=== PATIENT | male | born 1950 | race Caucasian/White ===

== ENCOUNTER 2018-01-30 17:09 | Emergency (ER) | payer MEDICARE, OTHER ==
[~2018-01-30] VITALS: Ht 177.8 cm; Wt 147.4 kg
[~2018-01-30 17:09] MED LIST: HUMALOG SQ; LANTUS SQ; SERT100T
[2018-01-30] MEDS ORDERED: DULOXETINE HCL 30 MG (17:23)
[2018-01-30] MEDS ORDERED: APAP (17:23)
[2018-01-30] MEDS ORDERED: ZOLPIDEM TARTRATE 5 MG (17:23)
[2018-01-30] MEDS ORDERED: PROMETHAZINE HCL (17:23)
[2018-01-30] MEDS ORDERED: VESICARE 10 MG (17:23)
[2018-01-30] MEDS ORDERED: SERTRALINE HCL 100 MG (17:23)
[2018-01-30] MEDS ORDERED: AMLODIPINE BESYLATE 5 MG TABS (17:23)
[2018-01-30] MEDS ORDERED: LISINOPRIL 10 MG TABS (17:23)
[2018-01-30] MEDS ORDERED: HYDROCO (17:23)
[2018-01-30] MEDS ORDERED: FUROSEMIDE 20 MG (17:23)
[2018-01-30] MEDS ORDERED: CICLOPIROX 8% (17:23)
[2018-01-30] MEDS ORDERED: IV NORMAL SALINE 1000 ML BAG IV ONE (17:30)
[2018-01-30 17:58] LABS: BASOPHILS # (AUTO) 0.1 K/uL (0.0-8.0); EOSINOPHILS # (AUTO) 0.2 K/uL (0.0-0.7); EOSINOPHILS % (AUTO) 1.5 % (0.0-7.0); HEMATOCRIT 36.8 % (36.7-47.1); HEMOGLOBIN 12.1 g/dL (12.5-16.3); LYMPHOCYTES % (AUTO) 43.9 % (20.5-51.5); MEAN CORPUSCULAR HEMOGLOBIN 30.7 uug (23.8-33.4); MEAN CORPUSCULAR HGB CONC 33 g/dL (32.5-36.3); MEAN CORPUSCULAR VOLUME 92.9 fL (73.0-96.2); MONOCYTES # (AUTO) 0.9 K/uL (2.0-10.0); MONOCYTES % (AUTO) 6.4 % (0.0-11.0); NEUTROPHILS # (AUTO) 6.5 K/uL (1.8-8.9); NEUTROPHILS % (AUTO) 47.2 % (38.5-71.5); PLATELET COUNT (AUTO) 265 K/uL (152-348); RED BLOOD CELL COUNT(AUTO) 3.96 MIL/uL (4.06-5.63); WHITE BLOOD COUNT (AUTO) 13.8 K/uL (3.6-10.2)
[2018-01-30 18:03] LABS: CREATININE 2.5 mg/dL (0.6-1.3); POTASSIUM 4.8 mmol/L (3.5-5.1)
[2018-01-30 18:09] LABS: BILIRUBIN,DIRECT 0.1 mg/dL (0.0-0.2); BILIRUBIN,TOTAL 0.5 mg/dL (0.2-1.0); TOTAL PROTEIN, SERUM 7.3 g/dL (6.4-8.2)
--- NOTE | 2018-01-30 18:48 | NUR ---
IV removed. Catheter intact and site benign. Pressure and 4x4 gauze applied to site. No bleeding noted.
[2018-01-30 18:55] VITALS: BP 111/57
--- NOTE | 2018-01-30 18:57 | NUR ---
Patient discharged to home in stable conditon. Written and verbal after care instructions given. Patient verbalizes understanding of instructions.
== END 2018-01-30 18:58 | disposition home or self-care (01) ==
LOC: ER 17:10
DX: I95.9 Hypotension, unspecified (principal); I10 Essential (primary) hypertension; J45.909 Unspecified asthma, uncomplicated; E11.9 Type 2 diabetes mellitus without complications
CPT/HCPCS: 36415; 70030-TC; 71045; 85025; 85730; 86850; 86900; 86901; 93005; A4663; J7030

== ENCOUNTER 2018-09-29 18:21 | Inpatient (IN) | payer MEDICARE, OTHER ==
[~2018-09-29] VITALS: Ht 180.3 cm; Wt 117.9 kg
[~2018-09-29 18:21] MED LIST changes: +AMLODIPINE BESYLATE 5 MG TABS; +APAP; +CICLOPIROX 8%; +DULOXETINE HCL 30 MG; +FUROSEMIDE 20 MG; +HYDROCO; +LISINOPRIL 10 MG TABS; +PROMETHAZINE HCL; +SERTRALINE HCL 100 MG; +VESICARE 10 MG; +ZOLPIDEM TARTRATE 5 MG
[2018-09-29] MEDS ORDERED: IV NORMAL SALINE 1000 ML BAG IV ONE (19:00)
[2018-09-29 19:30] LABS: BASOPHILS # (AUTO) 0.1 K/uL (0.0-8.0); BASOPHILS % (AUTO) 1.1 % (0.0-2.0); EOSINOPHILS # (AUTO) 0.1 K/uL (0.0-0.7); EOSINOPHILS % (AUTO) 1.3 % (0.0-7.0); HEMATOCRIT 36.2 % (36.7-47.1); HEMOGLOBIN 12.3 g/dL (12.5-16.3); LYMPHOCYTES # (AUTO) 4.7 K/uL (20.0-40.0); LYMPHOCYTES % (AUTO) 49.9 % (20.5-51.5); MEAN CORPUSCULAR HEMOGLOBIN 31.2 uug (23.8-33.4); MEAN CORPUSCULAR HGB CONC 34 g/dL (32.5-36.3); MEAN CORPUSCULAR VOLUME 92.2 fL (73.0-96.2); MONOCYTES # (AUTO) 0.6 K/uL (2.0-10.0); MONOCYTES % (AUTO) 6.1 % (0.0-11.0); NEUTROPHILS # (AUTO) 3.9 K/uL (1.8-8.9); NEUTROPHILS % (AUTO) 41.6 % (38.5-71.5); PLATELET COUNT (AUTO) 176 K/uL (152-348); RED BLOOD CELL COUNT(AUTO) 3.93 MIL/uL (4.06-5.63); WHITE BLOOD COUNT (AUTO) 9.4 K/uL (3.6-10.2)
[2018-09-29 19:45] LABS: BILIRUBIN,DIRECT 0.2 mg/dL (0.0-0.2); BILIRUBIN,TOTAL 0.4 mg/dL (0.2-1.0); CREATININE 1.7 mg/dL (0.6-1.3); POTASSIUM 4.8 mmol/L (3.5-5.1); TOTAL PROTEIN, SERUM 6.9 g/dL (6.4-8.2)
[2018-09-29 20:14] LABS: *BILIRUBIN,URIN NEGATIVE (NEGATIVE); *BLOOD, URINE NEGATIVE (NEGATIVE); *CLARITY,URINE CLEAR (CLEAR); *COLOR,URINE DARK YELLOW (YELLOW); *KETONES,URINE NEGATIVE (NEGATIVE); LEUKOCYTE ESTERASE ,URINE 1+ (NEGATIVE); NITRITE, URINE NEGATIVE (NEGATIVE); PH,URINE 5.5 (5.0-8.0); UGLUCOSE NEGATIVE (NEGATIVE)
[2018-09-29 20:28] LABS: RBC,URINE 0-3 /HPF (0-3)
[2018-09-29 20:29] LABS: BACTERIA,URINE FEW /HPF (NONE SEEN); SQUAMOUS EPITHELIAL CELL,UR NONE SEEN /HPF (NONE SEEN)
[2018-09-29] MEDS ORDERED: SOLI10TA2 PO (20:47)
[2018-09-29] MEDS ORDERED: TRAM50TA2 PO (20:47)
[2018-09-29] MEDS ORDERED: DULO30CA2 PO (20:47)
[2018-09-29] MEDS ORDERED: MIDO10TA PO (20:47)
[2018-09-29] MEDS ORDERED: SERT50TA PO (20:47)
[2018-09-29] MEDS ORDERED: FLUD0.1T PO (20:47)
[2018-09-29] MEDS ORDERED: ASPI81TA44 PO (20:47)
[2018-09-29] MEDS ORDERED: LISI30TA4 PO (20:47)
[2018-09-29] MEDS ORDERED: PRAV40TA3 PO (20:47)
[2018-09-29] MEDS ORDERED: CHOL100062 PO (20:47)
[2018-09-29] MEDS ORDERED: RANO10003 PO (20:47)
[2018-09-29] MEDS ORDERED: INSU100V7 SQ (20:47)
[2018-09-29] MEDS ORDERED: BLOO-360 IN (20:47)
[2018-09-29 21:49] VITALS: BP 144/58
[2018-09-29] MEDS ORDERED: DEXTROSE 50% 50 ML DISP.SYRIN IV PRN (22:45)
[2018-09-29] MEDS ORDERED: ONDANSETRON 4 MG/2 ML VIAL IV PRN (22:45)
[2018-09-29] MEDS ORDERED: MORPHINE SULFATE 2 MG/1 ML DISP.SYRIN IV PRN (22:45)
[2018-09-29] MEDS ORDERED: ACETAMINOPHEN 325 MG TABLET PO PRN (22:45)
[2018-09-30] VITALS: BP 105/48
[2018-09-30] MEDS: IV NS 1000 ML 1,000 ML IV PRN ×2 (00:04→12:35)
[2018-09-30 04:00] VITALS: BP 119/66
[2018-09-30] MEDS: PANTOPRAZOLE SODIUM 40 MG TABLET.DR PO SCH (06:12)
[2018-09-30] MEDS: BLOOD SUGAR DIAGNOSTIC 1 EACH STRIP VI SCH ×4 (06:29→20:45)
[2018-09-30 08:14] LABS: BASOPHILS # (AUTO) 0.1 K/uL (0.0-8.0); EOSINOPHILS # (AUTO) 0.2 K/uL (0.0-0.7); EOSINOPHILS % (AUTO) 2.2 % (0.0-7.0); HEMATOCRIT 34.2 % (36.7-47.1); HEMOGLOBIN 11.4 g/dL (12.5-16.3); LYMPHOCYTES # (AUTO) 4.8 K/uL (20.0-40.0); LYMPHOCYTES % (AUTO) 56.8 % (20.5-51.5); MEAN CORPUSCULAR HEMOGLOBIN 30.9 uug (23.8-33.4); MEAN CORPUSCULAR HGB CONC 33 g/dL (32.5-36.3); MEAN CORPUSCULAR VOLUME 92.5 fL (73.0-96.2); MONOCYTES # (AUTO) 0.6 K/uL (2.0-10.0); MONOCYTES % (AUTO) 6.5 % (0.0-11.0); NEUTROPHILS # (AUTO) 2.9 K/uL (1.8-8.9); NEUTROPHILS % (AUTO) 33.5 % (38.5-71.5); PLATELET COUNT (AUTO) 169 K/uL (152-348); RED BLOOD CELL COUNT(AUTO) 3.69 MIL/uL (4.06-5.63); WHITE BLOOD COUNT (AUTO) 8.5 K/uL (3.6-10.2)
[2018-09-30] MEDS: ASPIRIN EC 81 MG TABLET.DR PO SCH (08:44)
[2018-09-30] MEDS: CHOLECALCIFEROL 1,000 UNIT TABLET PO SCH ×2 (08:44→16:09)
[2018-09-30] MEDS: FLUDROCORTISONE ACETATE 0.1 MG TABLET PO SCH ×2 (08:45→16:09)
[2018-09-30] MEDS: SERTRALINE HCL 100 MG TABLET PO SCH (08:45)
[2018-09-30] MEDS: DULOXETINE 30 MG CAPSULE.DR PO SCH (08:45)
[2018-09-30] MEDS: OXYBUTYNIN CHLORIDE 5 MG TABLET PO SCH ×3 (08:45→16:09)
[2018-09-30] MEDS ORDERED: SERTRALINE HCL 50 MG TABLET PO SCH (09:00)
[2018-09-30 09:02] LABS: BILIRUBIN,TOTAL 0.4 mg/dL (0.2-1.0); CREATININE 1.5 mg/dL (0.6-1.3); MAGNESIUM 1.8 mg/dL (1.8-2.4); PHOSPHOROUS 4.4 mg/dL (2.5-4.9); POTASSIUM 3.8 mmol/L (3.5-5.1); TOTAL PROTEIN, SERUM 6.5 g/dL (6.4-8.2)
[2018-09-30 09:30] LABS: EOSINOPHILS % (MANUAL) 5 % (0-8); LYMPHOCYTES % (MANUAL) 62 % (20-40); MONOCYTES % (MANUAL) 3 % (2-10); NEUTROPHILS % (MANUAL) 30 % (42-75)
[2018-09-30 09:43] LABS: THYROID STIMULATING HORMONE 1.149 mIU/mL (0.358-3.740)
[2018-09-30] MEDS: RANOLAZINE 500 MG TAB.ER.12H PO SCH ×2 (10:40→20:41)
[2018-09-30 11:05] VITALS: BP 104/44
[2018-09-30] MEDS: MIDODRINE HCL 5 MG TABLET PO SCH ×2 (12:27→16:09)
[2018-09-30] MEDS: INSULIN REGULAR, HUMAN 300 UNIT/3 ML VIAL SQ PRN ×2 (12:31→16:09)
[2018-09-30 16:00] VITALS: BP 148/48
[2018-09-30 20:00] VITALS: BP 126/51
[2018-09-30] MEDS: ATORVASTATIN 40 MG TABLET PO SCH (20:41)
[2018-10-01 00:05] VITALS: BP 127/67
[2018-10-01] MEDS: IV NS 1000 ML 1,000 ML IV PRN ×2 (01:13→17:08)
[2018-10-01] MEDS: TEMAZEPAM 7.5 MG CAPSULE PO PRN ×2 (01:13→23:04)
[2018-10-01 04:00] VITALS: BP 139/53
[2018-10-01] MEDS: PANTOPRAZOLE SODIUM 40 MG TABLET.DR PO SCH (06:14)
[2018-10-01] MEDS: BLOOD SUGAR DIAGNOSTIC 1 EACH STRIP VI SCH ×4 (06:33→20:03)
[2018-10-01 06:55] LABS: BASOPHILS % (AUTO) 0.5 % (0.0-2.0); EOSINOPHILS # (AUTO) 0.2 K/uL (0.0-0.7); EOSINOPHILS % (AUTO) 1.9 % (0.0-7.0); HEMATOCRIT 31.8 % (36.7-47.1); HEMOGLOBIN 10.7 g/dL (12.5-16.3); LYMPHOCYTES # (AUTO) 4.4 K/uL (20.0-40.0); LYMPHOCYTES % (AUTO) 55.8 % (20.5-51.5); MEAN CORPUSCULAR HEMOGLOBIN 31.5 uug (23.8-33.4); MEAN CORPUSCULAR HGB CONC 34 g/dL (32.5-36.3); MEAN CORPUSCULAR VOLUME 93.4 fL (73.0-96.2); MONOCYTES # (AUTO) 0.5 K/uL (2.0-10.0); MONOCYTES % (AUTO) 6.7 % (0.0-11.0); NEUTROPHILS # (AUTO) 2.8 K/uL (1.8-8.9); NEUTROPHILS % (AUTO) 35.1 % (38.5-71.5); PLATELET COUNT (AUTO) 156 K/uL (152-348); RED BLOOD CELL COUNT(AUTO) 3.41 MIL/uL (4.06-5.63); WHITE BLOOD COUNT (AUTO) 7.9 K/uL (3.6-10.2)
[2018-10-01 07:06] LABS: CREATININE 1.3 mg/dL (0.6-1.3); MAGNESIUM 1.6 mg/dL (1.8-2.4); PHOSPHOROUS 3.4 mg/dL (2.5-4.9); POTASSIUM 3.5 mmol/L (3.5-5.1)
[2018-10-01] MEDS: ASPIRIN EC 81 MG TABLET.DR PO SCH (08:25)
[2018-10-01] MEDS: OXYBUTYNIN CHLORIDE 5 MG TABLET PO SCH ×3 (08:25→16:27)
[2018-10-01] MEDS: SERTRALINE HCL 100 MG TABLET PO SCH (08:25)
[2018-10-01] MEDS: FLUDROCORTISONE ACETATE 0.1 MG TABLET PO SCH ×2 (08:25→16:27)
[2018-10-01] MEDS: CHOLECALCIFEROL 1,000 UNIT TABLET PO SCH ×2 (08:26→16:27)
[2018-10-01] MEDS: DULOXETINE 30 MG CAPSULE.DR PO SCH (08:26)
[2018-10-01] MEDS: RANOLAZINE 500 MG TAB.ER.12H PO SCH ×2 (08:26→20:28)
[2018-10-01] MEDS: MIDODRINE HCL 5 MG TABLET PO SCH ×3 (09:17→16:27)
[2018-10-01 11:40] VITALS: BP 157/58
[2018-10-01] MEDS: MAGNESIUM SULFATE/D5W 100 ML IV SCH ×2 (13:00→14:34)
[2018-10-01 16:00] VITALS: BP 124/54
[2018-10-01] MEDS: INSULIN REGULAR, HUMAN 300 UNIT/3 ML VIAL SQ PRN ×2 (17:39→20:31)
[2018-10-01 20:00] VITALS: BP 115/58
[2018-10-01] MEDS: ATORVASTATIN 40 MG TABLET PO SCH (20:28)
[2018-10-02 04:54] VITALS: BP 146/67
[2018-10-02] MEDS: IV NS 1000 ML 1,000 ML IV PRN (04:59)
[2018-10-02] MEDS: PANTOPRAZOLE SODIUM 40 MG TABLET.DR PO SCH (06:24)
[2018-10-02] MEDS: BLOOD SUGAR DIAGNOSTIC 1 EACH STRIP VI SCH ×3 (06:33→16:39)
[2018-10-02] MEDS: SERTRALINE HCL 100 MG TABLET PO SCH (08:57)
[2018-10-02] MEDS: DULOXETINE 30 MG CAPSULE.DR PO SCH (08:57)
[2018-10-02] MEDS: FLUDROCORTISONE ACETATE 0.1 MG TABLET PO SCH ×2 (08:58→17:22)
[2018-10-02] MEDS: RANOLAZINE 500 MG TAB.ER.12H PO SCH (08:58)
[2018-10-02] MEDS: ASPIRIN EC 81 MG TABLET.DR PO SCH (08:58)
[2018-10-02] MEDS: OXYBUTYNIN CHLORIDE 5 MG TABLET PO SCH ×3 (08:58→17:22)
[2018-10-02] MEDS: CHOLECALCIFEROL 1,000 UNIT TABLET PO SCH ×2 (08:58→17:21)
[2018-10-02] MEDS: MIDODRINE HCL 5 MG TABLET PO SCH ×3 (09:04→17:22)
[2018-10-02] MEDS: INSULIN REGULAR, HUMAN 300 UNIT/3 ML VIAL SQ PRN ×2 (09:12→11:52)
[2018-10-02 10:36] VITALS: BP_SYST 106; BP_SYST 114; BP_SYST 125; BP_DIAS 55; BP_DIAS 56
[2018-10-02 11:29] LABS: BASOPHILS # (AUTO) 0.1 K/uL (0.0-8.0); BASOPHILS % (AUTO) 0.7 % (0.0-2.0); EOSINOPHILS # (AUTO) 0.2 K/uL (0.0-0.7); EOSINOPHILS % (AUTO) 2.4 % (0.0-7.0); HEMATOCRIT 33.4 % (36.7-47.1); LYMPHOCYTES # (AUTO) 3.9 K/uL (20.0-40.0); LYMPHOCYTES % (AUTO) 50.8 % (20.5-51.5); MEAN CORPUSCULAR HEMOGLOBIN 30.6 uug (23.8-33.4); MEAN CORPUSCULAR HGB CONC 33 g/dL (32.5-36.3); MONOCYTES # (AUTO) 0.6 K/uL (2.0-10.0); MONOCYTES % (AUTO) 7.5 % (0.0-11.0); NEUTROPHILS % (AUTO) 38.6 % (38.5-71.5); PLATELET COUNT (AUTO) 167 K/uL (152-348); RED BLOOD CELL COUNT(AUTO) 3.59 MIL/uL (4.06-5.63); WHITE BLOOD COUNT (AUTO) 7.7 K/uL (3.6-10.2)
[2018-10-02 11:44] LABS: CREATININE 1.2 mg/dL (0.6-1.3); MAGNESIUM 1.8 mg/dL (1.8-2.4); PHOSPHOROUS 3.3 mg/dL (2.5-4.9); POTASSIUM 3.9 mmol/L (3.5-5.1)
[2018-10-02 11:45] VITALS: BP 106/55
[2018-10-02 15:45] VITALS: BP 158/59
[2018-10-02 20:00] VITALS: BP 138/60
== END 2018-10-02 21:00 | DRG 312 ==
LOC: ER 18:22 → TELE3 21:12 → MEDSURG3 10-01 18:18
PROVIDERS: ADMIT Internal Medicine; ATTEND Student in an Organized Health Care Education/Training Program
DX: I95.1 Orthostatic hypotension (principal); N17.0 Acute kidney failure with tubular necrosis; I31.3 Pericardial effusion (noninflammatory); Z98.84 Bariatric surgery status; Z68.36 Body mass index [BMI] 36.0-36.9, adult; I25.2 Old myocardial infarction; Z95.5 Presence of coronary angioplasty implant and graft; I25.10 Atherosclerotic heart disease of native coronary artery without angina pectoris; E66.01 Morbid (severe) obesity due to excess calories; E78.5 Hyperlipidemia, unspecified; K40.20 Bilateral inguinal hernia, without obstruction or gangrene, not specified as recurrent; Z79.4 Long term (current) use of insulin; E11.22 Type 2 diabetes mellitus with diabetic chronic kidney disease; N18.3 Chronic kidney disease, stage 3 (moderate); R94.8 Abnormal results of function studies of other organs and systems; Z87.891 Personal history of nicotine dependence; J45.909 Unspecified asthma, uncomplicated; I13.10 Hypertensive heart and chronic kidney disease without heart failure, with stage 1 through stage 4 chronic kidney disease, or unspecified chronic kidney disease
CPT/HCPCS: 36415; 70030-TC; 71045; 83550; 83605; 83690; 83735; 84100; 84443; 85025; 85730; 87040; 87086; 93005; 93307; 93880; 97110; 97116; 97530; A4663; G0378; J1815; J3475; J7030

== ENCOUNTER 2022-04-15 20:21 | Inpatient (IN) | payer MEDICARE, OTHER ==
[~2022-04-15] VITALS: Ht 172.7 cm; Wt 128.5 kg
[~2022-04-15 20:21] MED LIST changes: -AMLODIPINE BESYLATE 5 MG TABS; -APAP; +ASPI81TA44 PO; +BLOO-360 IN; +CHOL100062 PO; -CICLOPIROX 8%; +DULO30CA2 PO; -DULOXETINE HCL 30 MG; +FLUD0.1T PO; -FUROSEMIDE 20 MG; -HUMALOG SQ; -HYDROCO; +INSU100V7 SQ; -LANTUS SQ; -LISINOPRIL 10 MG TABS; +MIDO10TA PO; +PRAV40TA3 PO; -PROMETHAZINE HCL; +RANO10003 PO; -SERT100T; +SERT50TA PO; -SERTRALINE HCL 100 MG; +SOLI10TA2 PO; +TRAM50TA2 PO; -VESICARE 10 MG; -ZOLPIDEM TARTRATE 5 MG
[2022-04-15] MEDS ORDERED: IV NORMAL SALINE 500 ML BAG IV ONE (20:30)
[2022-04-15] MEDS ORDERED: CEFTRIAXONE 1 G in IV DEXTROSE 5% 50 ML IV ONE (20:30)
[2022-04-15] MEDS ORDERED: AZITHROMYCIN IV 500 MG in IV DEXTROSE 5% 250 ML IV ONE (20:30)
[2022-04-15 21:43] LABS: HEMATOCRIT 41.3 % (36.7-47.1); MEAN CORPUSCULAR VOLUME 91.7 fL (73.0-96.2); PLATELET COUNT (AUTO) 255 K/uL (152-348)
[2022-04-15 21:55] LABS: ABG BASE EXCESS -4.1 mmol/L; ABG HCO3 20.5 mmol/L; ABG PCO2 36.2 mmHg (35.0-45.0); ABG PO2 68.4 mmHg (75.0-100.0); ABG SITE RIGHT RADIAL; ABG TOTAL HEMOGLOBIN 14.3 G/dL (13.5-18.0); COHb 0.9 % (0.5-1.5); MetHb 0.3 % (0.0-1.5); O2Hb 92.7 % (94.0-97.0); VENT MODE ROOM AIR
[2022-04-15 22:04] LABS: ALANINE AMINOTRANSFERASE 18 U/L (16-63); ALKALINE PHOSPHATASE 58 U/L (50-136); ASPARTATE AMINOTRANSFERASE 13 U/L (15-37); BILIRUBIN,DIRECT < 0.1 mg/dL (0.0-0.2); BILIRUBIN,TOTAL 0.3 mg/dL (0.2-1.0); CARBON DIOXIDE 30 mmol/L (21-32); CHLORIDE 101 mmol/L (98-107); CREATININE 1.8 mg/dL (0.6-1.3); GLUCOSE 97 mg/dL (74-106); POTASSIUM 5.1 mmol/L (3.5-5.1); TOTAL PROTEIN, SERUM 8.1 g/dL (6.4-8.2); UREA NITROGEN, BLOOD 35 mg/dL (7-18)
[2022-04-16] MEDS ORDERED: AZITHROMYCIN IV 500 MG in IV DEXTROSE 5% 250 ML IV ONE (00:45)
[2022-04-16] MEDS ORDERED: CEFTRIAXONE 1 G in IV DEXTROSE 5% 50 ML IV ONE (00:45)
[2022-04-16 00:50] LABS: *BILIRUBIN,URIN NEGATIVE (NEGATIVE); *BLOOD, URINE NEGATIVE (NEGATIVE); *CLARITY,URINE CLEAR (CLEAR); *COLOR,URINE YELLOW (YELLOW); *KETONES,URINE NEGATIVE (NEGATIVE); *UROBILINOGEN,URINE 0.2 E.U./dl (NORMAL); LEUKOCYTE ESTERASE ,URINE NEGATIVE (NEGATIVE); NITRITE, URINE NEGATIVE (NEGATIVE); PH,URINE 5.5 (5.0-8.0); UGLUCOSE NEGATIVE (NEGATIVE)
[2022-04-16] MEDS ORDERED: DONE10TA44 PO (02:57)
[2022-04-16] MEDS ORDERED: LISI10TA29 PO (02:57)
[2022-04-16] MEDS ORDERED: FOLI1TAB94 PO (02:57)
[2022-04-16] MEDS ORDERED: DULO30CA2 PO (02:57)
[2022-04-16] MEDS ORDERED: ONDANSETRON 4 MG/2 ML VIAL IV PRN (07:15)
[2022-04-16] MEDS ORDERED: ACETAMINOPHEN 325 MG TABLET PO PRN (07:15)
[2022-04-16] MEDS ORDERED: REMEDY ESSENTIAL ZINC PASTE 113 GM TP PRN (07:15)
[2022-04-16] MEDS ORDERED: MAGNESIUM HYDROXIDE 30 ML LIQUID UDC PO PRN (07:15)
[2022-04-16] MEDS ORDERED: DEXTROSE 50% 50 ML DISP.SYRIN IV PRN (07:15)
[2022-04-16] MEDS: BLOOD SUGAR DIAGNOSTIC 1 EACH STRIP VI SCH ×4 (07:30→21:24)
[2022-04-16] MEDS ORDERED: CEFTRIAXONE /D5W 50ML IVPB **ER PYXIS IV ONE (08:13)
[2022-04-16] MEDS ORDERED: AZITHROMYCIN 500MG/ D5W 250ML IVPB **ER PYXIS ONLY IV ONE (08:14)
[2022-04-16] MEDS ORDERED: FLUDROCORTISONE ACETATE 0.1 MG TABLET PO SCH (09:00)
--- NOTE | 2022-04-16 09:12 | NUR ---
TRANSFERED TO [address] [place] [address] VIA WHEELCHAIR WITH NO DISTRESS NOTED.
--- NOTE | 2022-04-16 10:00 | NUR ---
patient is admitted from ER, alert, oriented x4, sob upon exertion, ambulatory, no acute distress noted, no skin issues noted.
[2022-04-16] MEDS: DULOXETINE 30 MG CAPSULE.DR PO SCH (10:44)
[2022-04-16] MEDS: SERTRALINE HCL 100 MG TABLET PO SCH (10:44)
[2022-04-16] MEDS: OXYBUTYNIN CHLORIDE 5 MG TABLET PO SCH ×3 (10:44→16:45)
[2022-04-16] MEDS: RANOLAZINE 500 MG TAB.ER.12H PO SCH ×2 (10:45→21:23)
[2022-04-16] MEDS: FOLIC ACID 1 MG TABLET PO SCH (10:45)
[2022-04-16] MEDS: HEPARIN SODIUM,PORCINE 5,000 UNITS/ML VIAL SQ SCH ×2 (10:46→21:24)
[2022-04-16] MEDS: PANTOPRAZOLE SODIUM 40 MG VIAL IV SCH (10:49)
[2022-04-16] MEDS: DONEPEZIL 10 MG TABLET PO SCH (10:50)
[2022-04-16] MEDS: INSULIN REGULAR, HUMAN 300 UNIT/3 ML VIAL SQ PRN ×3 (10:56→21:25)
[2022-04-16 11:48] VITALS: BP 151/48
[2022-04-16] MEDS ORDERED: INSU300I SQ (14:08)
[2022-04-16] MEDS ORDERED: INSU100V SQ (14:08)
[2022-04-16] MEDS ORDERED: FURO-152 PO (14:08)
[2022-04-16 16:00] VITALS: BP 124/44
--- NOTE | 2022-04-16 17:31 | NUR ---
urine sample collected and dropped off to the lab
[2022-04-16 17:44] LABS: *CREATININE,URINE 83.2 mg/dL (30-125)
[2022-04-16 20:46] VITALS: BP 133/57
[2022-04-16] MEDS: ATORVASTATIN 20 MG TABLET PO SCH (21:23)
[2022-04-17 00:45] VITALS: BP 135/38
[2022-04-17] MEDS: BLOOD SUGAR DIAGNOSTIC 1 EACH STRIP VI SCH ×4 (06:23→21:24)
[2022-04-17 06:46] VITALS: BP 122/46
[2022-04-17 06:55] LABS: HEMATOCRIT 35.8 % (36.7-47.1); MEAN CORPUSCULAR HEMOGLOBIN 30.9 uug (23.8-33.4); MEAN CORPUSCULAR VOLUME 92.2 fL (73.0-96.2); PLATELET COUNT (AUTO) 168 K/uL (152-348)
[2022-04-17 07:19] LABS: THYROID STIMULATING HORMONE 0.711 mIU/mL (0.358-3.740)
[2022-04-17 07:23] LABS: BILIRUBIN,TOTAL 0.3 mg/dL (0.2-1.0); CREATININE 1.5 mg/dL (0.6-1.3); PHOSPHOROUS 4.3 mg/dL (2.5-4.9); POTASSIUM 4.4 mmol/L (3.5-5.1); TOTAL PROTEIN, SERUM 6.9 g/dL (6.4-8.2)
[2022-04-17] MEDS: CEFTRIAXONE 1 G in IV DEXTROSE 5% 50 ML IV SCH (07:44)
[2022-04-17] MEDS: PANTOPRAZOLE SODIUM 40 MG VIAL IV SCH (08:36)
[2022-04-17] MEDS: HEPARIN SODIUM,PORCINE 5,000 UNITS/ML VIAL SQ SCH ×2 (08:36→21:23)
[2022-04-17] MEDS: DULOXETINE 30 MG CAPSULE.DR PO SCH (08:36)
[2022-04-17] MEDS: AZITHROMYCIN IV 500 MG in IV DEXTROSE 5% 250 ML IV SCH (08:37)
[2022-04-17] MEDS: FOLIC ACID 1 MG TABLET PO SCH (08:37)
[2022-04-17] MEDS: DONEPEZIL 10 MG TABLET PO SCH (08:37)
[2022-04-17] MEDS: RANOLAZINE 500 MG TAB.ER.12H PO SCH ×2 (08:37→21:19)
[2022-04-17] MEDS: SERTRALINE HCL 100 MG TABLET PO SCH (08:37)
[2022-04-17] MEDS: OXYBUTYNIN CHLORIDE 5 MG TABLET PO SCH ×3 (08:37→17:02)
[2022-04-17] MEDS: INSULIN REGULAR, HUMAN 300 UNIT/3 ML VIAL SQ PRN ×4 (08:42→21:25)
[2022-04-17 11:32] VITALS: BP 126/50
[2022-04-17 15:58] VITALS: BP 109/33
--- NOTE | 2022-04-17 17:36 | NUR ---
Pt. has been resting in bed through out the shift. No c/o pain. Able to make the need known. Had an episode of increased heart rate and reported to Dr. Garza and received order for EKG. EKG was done and result reported to Dr. Garza. Compliance with the care given. All need attended and met.
[2022-04-17 20:00] VITALS: BP 120/38
[2022-04-17] MEDS: ATORVASTATIN 20 MG TABLET PO SCH (21:19)
[2022-04-18] VITALS: BP 119/45
[2022-04-18 04:00] VITALS: BP 131/43
[2022-04-18 06:34] LABS: HEMATOCRIT 35.9 % (36.7-47.1); MEAN CORPUSCULAR HEMOGLOBIN 30.7 uug (23.8-33.4); MEAN CORPUSCULAR VOLUME 91.1 fL (73.0-96.2); PLATELET COUNT (AUTO) 166 K/uL (152-348)
[2022-04-18] MEDS: BLOOD SUGAR DIAGNOSTIC 1 EACH STRIP VI SCH ×2 (06:37→11:17)
[2022-04-18] MEDS ORDERED: PANTOPRAZOLE SODIUM 40 MG TABLET.DR PO SCH (07:00)
[2022-04-18 07:05] LABS: THYROID STIMULATING HORMONE 0.613 mIU/mL (0.358-3.740)
[2022-04-18 07:24] LABS: BILIRUBIN,TOTAL 0.3 mg/dL (0.2-1.0); CREATININE 1.5 mg/dL (0.6-1.3); POTASSIUM 4.4 mmol/L (3.5-5.1); TOTAL PROTEIN, SERUM 6.8 g/dL (6.4-8.2)
[2022-04-18] MEDS: CEFTRIAXONE 1 G in IV DEXTROSE 5% 50 ML IV SCH (07:38)
[2022-04-18] MEDS: HEPARIN SODIUM,PORCINE 5,000 UNITS/ML VIAL SQ SCH (08:18)
[2022-04-18] MEDS: DULOXETINE 30 MG CAPSULE.DR PO SCH (08:19)
[2022-04-18] MEDS: DONEPEZIL 10 MG TABLET PO SCH (08:19)
[2022-04-18] MEDS: SERTRALINE HCL 100 MG TABLET PO SCH (08:19)
[2022-04-18] MEDS: RANOLAZINE 500 MG TAB.ER.12H PO SCH (08:19)
[2022-04-18] MEDS: OXYBUTYNIN CHLORIDE 5 MG TABLET PO SCH ×2 (08:19→12:10)
[2022-04-18] MEDS: FOLIC ACID 1 MG TABLET PO SCH (08:19)
[2022-04-18] MEDS: AZITHROMYCIN IV 500 MG in IV DEXTROSE 5% 250 ML IV SCH (08:26)
[2022-04-18] MEDS: INSULIN REGULAR, HUMAN 300 UNIT/3 ML VIAL SQ PRN ×2 (08:30→11:18)
[2022-04-18] MEDS ORDERED: ASPIRIN 81 MG TAB.CHEW PO SCH (09:30)
[2022-04-18] MEDS ORDERED: METOPROLOL SUCCINATE XL 25 MG TAB.SR.24H PO SCH (09:30)
[2022-04-18 11:10] LABS: BAND % (MANUAL) 1 % (0-10); EOSINOPHILS % (MANUAL) 1 % (0-8); LYMPHOCYTES % (MANUAL) 87 % (20-40); MONOCYTES % (MANUAL) 2 % (2-10); NEUTROPHILS % (MANUAL) 9 % (42-75)
[2022-04-18 11:42] VITALS: BP 111/47
[2022-04-18] MEDS ORDERED: DOXY-326 PO (12:40)
--- NOTE | 2022-04-18 13:30 | NUR ---
Pt. discharged home and picked up with his . Noted to be stable upon the discharge. No acute distress noted. IV line removed. All belonging retruded to the pt.
[2022-04-19] MEDS ORDERED: CEFTRIAXONE 2 G in IV DEXTROSE 5% 100 ML IV SCH (08:00)
[2022-04-19 08:06] LABS: *IMMUNOGLOBULIN G, SERUM 1101 mg/dL (603-1613); IMMUNOGLOBULIN M, SERUM 28 mg/dL (20-172)
[2022-04-19 10:49] LABS: A/G RATIO 0.9 (0.7-1.7); ALPHA-1-GLOBULIN 0.3 g/dL (0.0-0.4); ALPHA-2-GLOBULIN 0.9 g/dL (0.4-1.0); BETA GLOBULIN 1.1 g/dL (0.7-1.3); GAMMA GLOBULIN 1.1 g/dL (0.4-1.8); GLOBULIN, TOTAL 3.4 g/dL (2.2-3.9); M-SPIKE Not Observed g/dL (Not Observed)
== END 2022-04-18 13:50 | disposition home or self-care (01) | DRG 193 ==
LOC: ER 20:26 → TELE3 04-16 08:30
PROVIDERS: ADMIT Internal Medicine; ATTEND Nurse Practitioner Acute Care
DX: J15.9 Unspecified bacterial pneumonia (principal); I50.33 Acute on chronic diastolic (congestive) heart failure; J96.01 Acute respiratory failure with hypoxia; N17.0 Acute kidney failure with tubular necrosis; I13.0 Hypertensive heart and chronic kidney disease with heart failure and stage 1 through stage 4 chronic kidney disease, or unspecified chronic kidney disease; I47.1 Supraventricular tachycardia; Z68.41 Body mass index [BMI] 40.0-44.9, adult; J20.9 Acute bronchitis, unspecified; D64.9 Anemia, unspecified; D72.820 Lymphocytosis (symptomatic); E66.01 Morbid (severe) obesity due to excess calories; I25.10 Atherosclerotic heart disease of native coronary artery without angina pectoris; G47.33 Obstructive sleep apnea (adult) (pediatric); E88.09 Other disorders of plasma-protein metabolism, not elsewhere classified; E11.22 Type 2 diabetes mellitus with diabetic chronic kidney disease; N18.9 Chronic kidney disease, unspecified; J45.909 Unspecified asthma, uncomplicated; Z98.61 Coronary angioplasty status; Z87.891 Personal history of nicotine dependence; Z98.84 Bariatric surgery status; Z79.4 Long term (current) use of insulin; Z79.899 Other long term (current) drug therapy; Z20.822 Contact with and (suspected) exposure to COVID-19; J44.9 Chronic obstructive pulmonary disease, unspecified; F12.90 Cannabis use, unspecified, uncomplicated; D72.829 Elevated white blood cell count, unspecified
CPT/HCPCS: 36415; 36600; 70030-TC; 71045; 76770; 82747; 82784; 83550; 83605; 83735; 84100; 84155; 84165; 84300; 84443; 84484; 85014; 85025; 85730; 86334; 87040; 93005; 93307; A4663; C9113; G0378; J0456; J0696; J1644; J1815; J7050

== ENCOUNTER 2022-09-18 19:21 | Emergency (ER) | payer MEDICARE, OTHER ==
[~2022-09-18] VITALS: Ht 180.3 cm; Wt 136.1 kg
[~2022-09-18 19:21] MED LIST changes: -ASPI81TA44 PO; +DONE10TA44 PO; +DOXY-326 PO; -FLUD0.1T PO; +FOLI1TAB94 PO; +FURO-152 PO; +INSU100V SQ; -INSU100V7 SQ; +INSU300I SQ; +LISI10TA29 PO; -MIDO10TA PO; -TRAM50TA2 PO
[2022-09-18] MEDS ORDERED: HYDROMORPHONE 1 MG/1 ML DISP.SYRIN IM ONE (21:00)
[2022-09-18] MEDS ORDERED: ONDANSETRON HCL 4 MG TABLET PO ONE (21:00)
[2022-09-18] MEDS ORDERED: ONDANSETRON HCL 4 MG TABLET ONE (21:08)
[2022-09-18] MEDS ORDERED: HYDROMORPHONE 2 MG/1 ML DISP.SYRIN ONE (21:08)
[2022-09-18 21:16] LABS: HEMATOCRIT 39.8 % (36.7-47.1); MEAN CORPUSCULAR HEMOGLOBIN 29.6 uug (23.8-33.4); MEAN CORPUSCULAR VOLUME 91.5 fL (73.0-96.2); PLATELET COUNT (AUTO) 251 K/uL (152-348)
[2022-09-18 21:26] LABS: CARBON DIOXIDE 23 mmol/L (21-32); CHLORIDE 101 mmol/L (98-107); CREATININE 1.8 mg/dL (0.6-1.3); GLUCOSE 191 mg/dL (74-106); POTASSIUM 5.5 mmol/L (3.5-5.1); UREA NITROGEN, BLOOD 42 mg/dL (7-18)
[2022-09-18] MEDS ORDERED: PROCHLORPERAZINE EDISYLATE 10 MG/2 ML VIAL IM ONE (22:00)
[2022-09-18] MEDS ORDERED: PROCHLORPERAZINE EDISYLATE 10 MG/2 ML VIAL ONE (22:04)
[2022-09-18] MEDS ORDERED: HYDR-3980 PO (22:34)
[2022-09-18] MEDS ORDERED: HYDROCODONE/APAP 10-325 MG TABLET ONE (22:43)
--- NOTE | 2022-09-18 22:43 | NUR ---
Dr Lao verbally ordered [facility]
[2022-09-18] MEDS ORDERED: HYDROCODONE/APAP 10-325 MG TABLET PO ONE (22:45)
--- NOTE | 2022-09-18 22:54 | NUR ---
Patient does not wish to proceed with medical care recommended by Dr. Lao. Patient given information related to possible complications, up to and including , which could occur as a result of leaving the hospital at this time. Patient verbalizes understanding of risks involved due to leaving against medical advice. Patient has signed AMA form.
[2022-09-18 22:55] VITALS: BP 120/71
== END 2022-09-18 22:55 | disposition left against medical advice (07) ==
LOC: ER 19:23
DX: S32.028A Other fracture of second lumbar vertebra, initial encounter for closed fracture (principal); I10 Essential (primary) hypertension; J45.909 Unspecified asthma, uncomplicated; E11.9 Type 2 diabetes mellitus without complications; Z79.4 Long term (current) use of insulin; Z79.899 Other long term (current) drug therapy; X58.XXXA Exposure to other specified factors, initial encounter; Y93.89 Activity, other specified; Y92.89 Other specified places as the place of occurrence of the external cause; Y99.8 Other external cause status
CPT/HCPCS: 36415; 72131; 83735; 85025; 85651; A4663; J0780; J1170; Q0162

== ENCOUNTER 2023-11-05 02:32 | Inpatient (IN) | payer MEDICARE, OTHER ==
[~2023-11-05] VITALS: Ht 172.7 cm; Wt 120.2 kg
[~2023-11-05 02:32] MED LIST changes: +HYDR-3980 PO
[2023-11-05] MEDS: NITROGLYCERIN OINT 1 GM PACKET TP ONE (02:55)
[2023-11-05] MEDS: ASPIRIN 81 MG TAB.CHEW PO ONE (02:55)
[2023-11-05] MEDS ORDERED: ASPIRIN 81 MG TAB.CHEW ONE (02:57)
[2023-11-05] MEDS ORDERED: NITROGLYCERIN OINT 1 GM PACKET TP ONE (02:57)
[2023-11-05 03:23] LABS: BASOPHILS # (AUTO) 0.2 K/UL (0.0-0.2); BASOPHILS % (AUTO) 1.2 % (0.0-2.0); EOSINOPHILS # (AUTO) 0.4 K/uL (0.0-0.7); HEMATOCRIT 40.1 % (36.7-47.1); LYMPHOCYTES # (AUTO) 9.1 K/uL (0.8-4.8); LYMPHOCYTES % (AUTO) 47.8 % (20.5-51.5); MEAN CORPUSCULAR HEMOGLOBIN 29.3 uug (23.8-33.4); MEAN CORPUSCULAR HGB CONC 32 g/dL (32.5-36.3); MEAN CORPUSCULAR VOLUME 90.4 fL (73.0-96.2); MONOCYTES # (AUTO) 0.8 K/uL (0.1-1.30); MONOCYTES % (AUTO) 4.3 % (0.0-11.0); NEUTROPHILS # (AUTO) 8.6 K/uL (1.8-8.9); NEUTROPHILS % (AUTO) 44.7 % (38.5-71.5); PLATELET COUNT (AUTO) 172 K/uL (152-348); RED BLOOD CELL COUNT(AUTO) 4.44 MIL/uL (4.06-5.63); RED CELL DISTRIBUTION WIDTH 14.2 % (12.1-16.2); WHITE BLOOD COUNT (AUTO) 19.1 K/uL (3.6-10.2)
[2023-11-05 03:24] LABS: DIFFERENTIAL COMMENT 1
[2023-11-05] MEDS: levoFLOXacin 750MG/D5W 150 ML IV ONE (03:33)
[2023-11-05] MEDS ORDERED: levoFLOXacin 750MG/D5W 150 ML IV ONE (03:35)
[2023-11-05 03:42] LABS: CALCIUM 8.9 mg/dL (8.5-10.1); CARBON DIOXIDE 25 mmol/L (21-32); CHLORIDE 104 mmol/L (98-107); CREATININE 1.5 mg/dL (0.6-1.3); GLUCOSE 170 mg/dL (74-106); POTASSIUM 5.1 mmol/L (3.5-5.1); SODIUM SERUM 139 mmol/L (136-145); UREA NITROGEN, BLOOD 32 mg/dL (7-18)
[2023-11-05 03:54] LABS: ALANINE AMINOTRANSFERASE 16 U/L (16-63); ALBUMIN 3.2 g/dL (3.4-5.0); ALKALINE PHOSPHATASE 64 U/L (50-136); ASPARTATE AMINOTRANSFERASE 7 U/L (15-37); BILIRUBIN,DIRECT 0.1 mg/dL (0.0-0.2); BILIRUBIN,TOTAL 0.3 mg/dL (0.2-1.0); NT-PRO BNP 635 pg/mL (0-125); TOTAL PROTEIN, SERUM 7.4 g/dL (6.4-8.2)
[2023-11-05] MEDS ORDERED: LEVOFLOXACIN/D5W 250 MG in PREMIX 1 EA IV SCH (04:00)
[2023-11-05] MEDS ORDERED: ENOXAPARIN SODIUM 100 MG/ML DISP.SYRIN SQ ONE (04:11)
[2023-11-05] MEDS: ENOXAPARIN SODIUM 100 MG/ML DISP.SYRIN SQ ONE (04:18)
[2023-11-05] MEDS ORDERED: REMEDY ESSENTIAL ZINC PASTE 113 GM TP PRN (06:15)
[2023-11-05] MEDS ORDERED: MAGNESIUM HYDROXIDE 30 ML LIQUID UDC PO PRN (06:15)
[2023-11-05] MEDS ORDERED: ONDANSETRON 4 MG/2 ML VIAL IV PRN (06:15)
[2023-11-05] MEDS ORDERED: ZOLPIDEM 5 MG TABLET PO PRN (06:15)
[2023-11-05] MEDS ORDERED: ZOLPIDEM 5 MG TABLET GT PRN (06:15)
[2023-11-05] MEDS ORDERED: levoFLOXacin 500 MG/D5W 500 MG in PREMIXED 1 EACH IV SCH (06:15)
[2023-11-05 06:46] VITALS: BP 117/69; TEMP 97.6
[2023-11-05] MEDS: PANTOPRAZOLE SODIUM 40 MG TABLET.DR PO SCH (07:52)
[2023-11-05 08:01] VITALS: BP 134/118; TEMP 97.7; O2SAT 94
[2023-11-05] MEDS: ACETAMINOPHEN 325 MG TABLET PO PRN (08:06)
[2023-11-05] MEDS: ASPIRIN 81 MG TAB.CHEW PO SCH (08:55)
[2023-11-05 11:21] LABS: ABG BASE EXCESS -1.9 mmol/L (-2.0-2.0); ABG HCO3 23.1 mmol/L (22.0-26.0); ABG PCO2 40.2 mmHg (35.0-48.0); ABG PH 7.377 (7.340-7.440); ABG PO2 75.2 mmHg (75.0-100.0); ABG SITE RIGHT RADIAL; ABG TOTAL HEMOGLOBIN 12.8 G/dL (14.0-18.0); AaDO2 94.9 mmHg; COHb 0.7 % (0.0-3.9); MetHb 0.3 % (0.0-1.5)
[2023-11-05] MEDS ORDERED: FLUT1BLS6 IH (11:40)
[2023-11-05] MEDS ORDERED: FENT1PAT23 TOP (11:40)
[2023-11-05] MEDS ORDERED: OXYC1TAB12 PO (11:40)
[2023-11-05] MEDS ORDERED: CLOP75TA33 PO (11:40)
[2023-11-05 12:00] VITALS: BP 136/60; O2SAT 95
[2023-11-05 12:13] LABS: BASOPHILS # (AUTO) 0.1 K/UL (0.0-0.2); BASOPHILS % (AUTO) 0.5 % (0.0-2.0); EOSINOPHILS # (AUTO) 0.1 K/uL (0.0-0.7); EOSINOPHILS % (AUTO) 1.2 % (0.0-7.0); HEMATOCRIT 37.9 % (36.7-47.1); HEMOGLOBIN 12.1 g/dL (12.5-16.3); LYMPHOCYTES # (AUTO) 7.6 K/uL (0.8-4.8); LYMPHOCYTES % (AUTO) 59.8 % (20.5-51.5); MEAN CORPUSCULAR HEMOGLOBIN 29.1 uug (23.8-33.4); MEAN CORPUSCULAR HGB CONC 32 g/dL (32.5-36.3); MEAN CORPUSCULAR VOLUME 91.5 fL (73.0-96.2); MONOCYTES # (AUTO) 0.6 K/uL (0.1-1.30); MONOCYTES % (AUTO) 4.7 % (0.0-11.0); NEUTROPHILS # (AUTO) 4.3 K/uL (1.8-8.9); NEUTROPHILS % (AUTO) 33.8 % (38.5-71.5); PLATELET COUNT (AUTO) 145 K/uL (152-348); RED BLOOD CELL COUNT(AUTO) 4.15 MIL/uL (4.06-5.63); RED CELL DISTRIBUTION WIDTH 13.9 % (12.1-16.2); WHITE BLOOD COUNT (AUTO) 12.6 K/uL (3.6-10.2)
[2023-11-05 12:19] LABS: DIFFERENTIAL COMMENT 1
[2023-11-05 12:35] LABS: ALANINE AMINOTRANSFERASE 16 U/L (16-63); ALBUMIN 3.1 g/dL (3.4-5.0); ALKALINE PHOSPHATASE 64 U/L (50-136); ASPARTATE AMINOTRANSFERASE 11 U/L (15-37); BILIRUBIN,TOTAL 0.4 mg/dL (0.2-1.0); CALCIUM 8.9 mg/dL (8.5-10.1); CARBON DIOXIDE 24 mmol/L (21-32); CHLORIDE 104 mmol/L (98-107); CREATININE 1.5 mg/dL (0.6-1.3); GLUCOSE 213 mg/dL (74-106); POTASSIUM 4.9 mmol/L (3.5-5.1); SODIUM SERUM 137 mmol/L (136-145); TOTAL PROTEIN, SERUM 7.1 g/dL (6.4-8.2); UREA NITROGEN, BLOOD 36 mg/dL (7-18)
[2023-11-05] MEDS ORDERED: HYDROCODONE/APAP 10-325 MG TABLET PO SCH (13:00)
[2023-11-05] MEDS ORDERED: INSULIN LISPRO 1000 UNITS/10 ML VIAL(HUMALOG) SQ SCH (13:00)
[2023-11-05 13:17] VITALS: O2SAT 96
[2023-11-05] MEDS: HYDROCODONE/APAP 10-325 MG TABLET PO ONE (13:54)
[2023-11-05] MEDS ORDERED: NALOXONE HCL 0.4 MG/ML AMPUL IV PRN (14:30)
[2023-11-05] MEDS: BLOOD SUGAR DIAGNOSTIC 1 EACH STRIP VI SCH (16:47)
[2023-11-05] MEDS: INSULIN LISPRO 300 UNIT/3 ML VIAL SQ SCH (17:49)
[2023-11-05] MEDS: CHOLECALCIFEROL 1,000 UNIT TABLET PO SCH (17:50)
[2023-11-05] MEDS: ENOXAPARIN SODIUM 120 MG/0.8 ML SYRINGE SQ SCH (18:39)
[2023-11-05 20:00] VITALS: BP 130/62; TEMP 97.8; O2SAT 100
[2023-11-05] MEDS: ZOLPIDEM 5 MG TABLET PO PRN (20:29)
[2023-11-05 21:27] VITALS: O2SAT 97
[2023-11-06] VITALS (9 sets, daily range): BP systolic 108–142; BP diastolic 47–101; TEMP 97.2–98.5; O2SAT 93–99
[2023-11-06] MEDS: LORAZEPAM 2 MG/1 ML VIAL IV PRN ×2 (01:37→04:53)
[2023-11-06] MEDS ORDERED: LORAZEPAM 2 MG/1 ML VIAL IV PRN (03:45)
[2023-11-06] MEDS: OLANZAPINE 10 MG VIAL IM ONE (03:52)
[2023-11-06] MEDS: LEVOFLOXACIN/D5W 250 MG in PREMIX 1 EA IV SCH (03:58)
[2023-11-06] MEDS ORDERED: levoFLOXacin 750MG/D5W 750 MG in PREMIXED 1 EACH IV SCH (04:00)
[2023-11-06] MEDS ORDERED: OLANZAPINE 10 MG VIAL IM PRN (04:15)
[2023-11-06 05:02] LABS: BASOPHILS # (AUTO) 0.2 K/UL (0.0-0.2); BASOPHILS % (AUTO) 1.2 % (0.0-2.0); EOSINOPHILS # (AUTO) 0.3 K/uL (0.0-0.7); EOSINOPHILS % (AUTO) 2.1 % (0.0-7.0); HEMATOCRIT 37.3 % (36.7-47.1); HEMOGLOBIN 12.2 g/dL (12.5-16.3); LYMPHOCYTES # (AUTO) 8.5 K/uL (0.8-4.8); LYMPHOCYTES % (AUTO) 59.8 % (20.5-51.5); MEAN CORPUSCULAR HEMOGLOBIN 29.6 uug (23.8-33.4); MEAN CORPUSCULAR HGB CONC 33 g/dL (32.5-36.3); MEAN CORPUSCULAR VOLUME 90.3 fL (73.0-96.2); MONOCYTES # (AUTO) 0.7 K/uL (0.1-1.30); MONOCYTES % (AUTO) 4.6 % (0.0-11.0); NEUTROPHILS # (AUTO) 4.6 K/uL (1.8-8.9); NEUTROPHILS % (AUTO) 32.3 % (38.5-71.5); PLATELET COUNT (AUTO) 143 K/uL (152-348); RED BLOOD CELL COUNT(AUTO) 4.13 MIL/uL (4.06-5.63); RED CELL DISTRIBUTION WIDTH 13.8 % (12.1-16.2); WHITE BLOOD COUNT (AUTO) 14.2 K/uL (3.6-10.2)
[2023-11-06 05:03] LABS: DIFFERENTIAL COMMENT 1
[2023-11-06 05:24] LABS: CALCIUM 9.2 mg/dL (8.5-10.1); CARBON DIOXIDE 24 mmol/L (21-32); CHLORIDE 104 mmol/L (98-107); CREATININE 1.5 mg/dL (0.6-1.3); GLUCOSE 165 mg/dL (74-106); PHOSPHOROUS 3.5 mg/dL (2.5-4.9); POTASSIUM 4.3 mmol/L (3.5-5.1); SODIUM SERUM 139 mmol/L (136-145); UREA NITROGEN, BLOOD 33 mg/dL (7-18)
[2023-11-06 05:59] LABS: THYROID STIMULATING HORMONE 1.415 mIU/mL (0.358-3.740)
[2023-11-06] MEDS: FENTANYL 100MCG/HR PATCH TD SCH (08:15)
[2023-11-06] MEDS ORDERED: DONEPEZIL 10 MG TABLET PO SCH (09:00)
[2023-11-06] MEDS ORDERED: FOLIC ACID 1 MG TABLET PO SCH (09:00)
[2023-11-06] MEDS ORDERED: LISINOPRIL 10 MG TABLET PO SCH (09:00)
[2023-11-06] MEDS: METOPROLOL SUCCINATE XL 25 MG TAB.SR.24H PO SCH (09:24)
[2023-11-06] MEDS: SERTRALINE HCL 50 MG TABLET PO SCH (09:24)
[2023-11-06] MEDS: CLOPIDOGREL 75 MG TABLET PO SCH (09:24)
[2023-11-06] MEDS: DULOXETINE 30 MG CAPSULE.DR PO SCH (09:27)
[2023-11-06] MEDS: ISOSORBIDE MONONITRATE 30 MG TAB.SR.24H PO SCH (09:27)
[2023-11-06] MEDS: PATIENT MAY USE OWN MED- MD OK PO SCH (09:27)
[2023-11-06] MEDS: OXYCODONE/APAP 5-325 MG TABLET PO PRN (09:44)
[2023-11-06] MEDS: VANCOMYCIN IV 2,000 MG in IV DEXTROSE 5% 500 ML IV ONE (20:30)
[2023-11-06] MEDS: ATORVASTATIN 40 MG TABLET PO SCH (20:51)
[2023-11-07 00:04] VITALS: BP 147/87; TEMP 97.7; O2SAT 100
[2023-11-07 01:03] LABS: *BILIRUBIN,URIN NEGATIVE (NEGATIVE); *BLOOD, URINE TRACE LYSED (NEGATIVE); *CLARITY,URINE CLEAR (CLEAR); *COLOR,URINE YELLOW (YELLOW); *KETONES,URINE NEGATIVE (NEGATIVE); *PROTEIN,URINE NEGATIVE (NEGATIVE); *UROBILINOGEN,URINE 0.2 E.U./dl (NORMAL); LEUKOCYTE ESTERASE ,URINE NEGATIVE (NEGATIVE); NITRITE, URINE NEGATIVE (NEGATIVE); PH,URINE 5.5 (5.0-8.0); UGLUCOSE NEGATIVE (NEGATIVE)
[2023-11-07 01:21] LABS: BACTERIA,URINE NONE SEEN /HPF (NONE SEEN); RBC,URINE 0-3 /HPF (0-3); SQUAMOUS EPITHELIAL CELL,UR FEW /HPF (NONE SEEN); WBC,URINE 0-3 /HPF (0-3)
[2023-11-07] MEDS: MORPHINE SULFATE 2 MG/1 ML DISP.SYRIN IV PRN (01:45)
[2023-11-07] MEDS ORDERED: levoFLOXacin 250MG /D5W 50 ML IV SCH (04:00)
[2023-11-07 04:21] VITALS: BP 139/62; TEMP 97.5; O2SAT 100
[2023-11-07] MEDS: METOPROLOL SUCCINATE XL 25 MG TAB.SR.24H PO SCH (08:19)
[2023-11-07 08:21] VITALS: BP 138/62
[2023-11-07] MEDS: ENOXAPARIN SODIUM 40 MG/0.4 ML DISP.SYRIN SQ SCH (08:42)
[2023-11-07] MEDS ORDERED: METO-356 PO (08:45)
[2023-11-07] MEDS ORDERED: LEVO750T46 PO (08:45)
[2023-11-07] MEDS ORDERED: ISOS30TA86 PO (08:45)
[2023-11-07] MEDS ORDERED: ASPI81TA31 PO (08:45)
[2023-11-07] MEDS ORDERED: AMOX-430 PO (08:47)
[2023-11-07] MEDS ORDERED: ENOXAPARIN SODIUM 120 MG/0.8 ML SYRINGE SQ SCH (09:00)
[2023-11-08] MEDS ORDERED: levoFLOXacin 750MG/D5W 750 MG in PREMIXED 1 EACH IV SCH (04:00)
== END 2023-11-07 12:16 | disposition home health service (06) | DRG 189 ==
LOC: ER 02:36 → CCU 05:33 → TELE3 11-06 17:43
PROVIDERS: ADMIT Student in an Organized Health Care Education/Training Program; ATTEND Internal Medicine
DX: J96.21 Acute and chronic respiratory failure with hypoxia (principal); I21.4 Non-ST elevation (NSTEMI) myocardial infarction; N17.0 Acute kidney failure with tubular necrosis; J44.1 Chronic obstructive pulmonary disease with (acute) exacerbation; Z68.41 Body mass index [BMI] 40.0-44.9, adult; I13.0 Hypertensive heart and chronic kidney disease with heart failure and stage 1 through stage 4 chronic kidney disease, or unspecified chronic kidney disease; I50.32 Chronic diastolic (congestive) heart failure; I47.10 Supraventricular tachycardia, unspecified; E66.01 Morbid (severe) obesity due to excess calories; I25.10 Atherosclerotic heart disease of native coronary artery without angina pectoris; E11.22 Type 2 diabetes mellitus with diabetic chronic kidney disease; N18.9 Chronic kidney disease, unspecified; Z79.4 Long term (current) use of insulin; Z95.5 Presence of coronary angioplasty implant and graft; Z98.84 Bariatric surgery status; Z87.891 Personal history of nicotine dependence; Z79.899 Other long term (current) drug therapy; G47.33 Obstructive sleep apnea (adult) (pediatric); E78.5 Hyperlipidemia, unspecified; I25.2 Old myocardial infarction
CPT/HCPCS: 36415; 36600; 71045; 82803; 83735; 84100; 84443; 84484; 85025; 86140; 87040; 93005; 93307; 94760; A4606; A4663; G0378; J1650; J1956; J2060; J2270; J2358; J3370; J7060

== ENCOUNTER 2023-11-12 11:33 | Emergency (ER) | payer MEDICARE, OTHER ==
[~2023-11-12] VITALS: Ht 177.8 cm; Wt 127.9 kg
[~2023-11-12 11:33] MED LIST changes: +AMOX-430 PO; +ASPI81TA31 PO; -CHOL100062 PO; +CLOP75TA33 PO; -DOXY-326 PO; +FENT1PAT23 TOP; +FLUT1BLS6 IH; -FOLI1TAB94 PO; -FURO-152 PO; -HYDR-3980 PO; +ISOS30TA86 PO; -LISI10TA29 PO; +METO-356 PO; +OXYC1TAB12 PO; -RANO10003 PO
[2023-11-12] MEDS ORDERED: ONDANSETRON 4 MG/2 ML VIAL ONE (12:31)
[2023-11-12] MEDS ORDERED: MORPHINE SULFATE 4 MG/1 ML DISP.SYRIN ONE ×2 (12:32→17:05)
[2023-11-12] MEDS: ONDANSETRON 4 MG/2 ML VIAL IV ONE (12:34)
[2023-11-12 12:36] LABS: BASOPHILS # (AUTO) 0.2 K/UL (0.0-0.2); BASOPHILS % (AUTO) 0.8 % (0.0-2.0); EOSINOPHILS # (AUTO) 0.4 K/uL (0.0-0.7); EOSINOPHILS % (AUTO) 1.7 % (0.0-7.0); HEMATOCRIT 39.6 % (36.7-47.1); HEMOGLOBIN 12.5 g/dL (12.5-16.3); LYMPHOCYTES # (AUTO) 12.1 K/uL (0.8-4.8); LYMPHOCYTES % (AUTO) 58.7 % (20.5-51.5); MEAN CORPUSCULAR HEMOGLOBIN 28.7 uug (23.8-33.4); MEAN CORPUSCULAR HGB CONC 32 g/dL (32.5-36.3); MEAN CORPUSCULAR VOLUME 90.6 fL (73.0-96.2); NEUTROPHILS % (AUTO) 33.8 % (38.5-71.5); PLATELET COUNT (AUTO) 228 K/uL (152-348); RED BLOOD CELL COUNT(AUTO) 4.37 MIL/uL (4.06-5.63); WHITE BLOOD COUNT (AUTO) 20.6 K/uL (3.6-10.2)
[2023-11-12] MEDS: MORPHINE SULFATE 2 MG/1 ML DISP.SYRIN IV ONE (12:36)
[2023-11-12 12:44] LABS: CALCIUM 9.1 mg/dL (8.5-10.1); CARBON DIOXIDE 24 mmol/L (21-32); CHLORIDE 102 mmol/L (98-107); CREATININE 1.4 mg/dL (0.6-1.3); GLUCOSE 213 mg/dL (74-106); SODIUM SERUM 134 mmol/L (136-145); UREA NITROGEN, BLOOD 28 mg/dL (7-18)
[2023-11-12 12:45] LABS: POTASSIUM 5.3 mmol/L (3.5-5.1)
[2023-11-12 12:46] LABS: DIFFERENTIAL COMMENT 1
[2023-11-12 12:50] LABS: ALANINE AMINOTRANSFERASE 12 U/L (16-63); ALKALINE PHOSPHATASE 64 U/L (50-136); ASPARTATE AMINOTRANSFERASE 11 U/L (15-37); BILIRUBIN,DIRECT 0.1 mg/dL (0.0-0.2); BILIRUBIN,TOTAL 0.6 mg/dL (0.2-1.0); LIPASE 19 U/L (16-77); TOTAL PROTEIN, SERUM 7.6 g/dL (6.4-8.2)
[2023-11-12] MEDS: MORPHINE SULFATE 4 MG/1 ML DISP.SYRIN IV ONE (17:10)
[2023-11-12 20:25] LABS: *BILIRUBIN,URIN NEGATIVE (NEGATIVE); *BLOOD, URINE NEGATIVE (NEGATIVE); *CLARITY,URINE CLOUDY (CLEAR); *COLOR,URINE YELLOW (YELLOW); *KETONES,URINE NEGATIVE (NEGATIVE); *PROTEIN,URINE TRACE (NEGATIVE); *UROBILINOGEN,URINE 0.2 E.U./dl (NORMAL); LEUKOCYTE ESTERASE ,URINE NEGATIVE (NEGATIVE); NITRITE, URINE NEGATIVE (NEGATIVE); PH,URINE 5.5 (5.0-8.0); UGLUCOSE NEGATIVE (NEGATIVE)
[2023-11-12 20:26] LABS: RBC,URINE 0-3 /HPF (0-3); WBC,URINE 0-3 /HPF (0-3)
[2023-11-12 21:00] VITALS: O2SAT 94
== END 2023-11-12 21:50 | disposition short-term general hospital (02) ==
LOC: ER 11:39
DX: S80.12XA Contusion of left lower leg, initial encounter (principal); M46.46 Discitis, unspecified, lumbar region; M79.605 Pain in left leg; D72.829 Elevated white blood cell count, unspecified; M19.90 Unspecified osteoarthritis, unspecified site; N18.9 Chronic kidney disease, unspecified; E11.65 Type 2 diabetes mellitus with hyperglycemia; I10 Essential (primary) hypertension; E78.5 Hyperlipidemia, unspecified; J45.909 Unspecified asthma, uncomplicated; F32.A Depression, unspecified; E66.9 Obesity, unspecified; Z98.890 Other specified postprocedural states; Z79.899 Other long term (current) drug therapy; Z79.82 Long term (current) use of aspirin; Z79.4 Long term (current) use of insulin; X58.XXXA Exposure to other specified factors, initial encounter; Y93.89 Activity, other specified; Y92.89 Other specified places as the place of occurrence of the external cause; Y99.8 Other external cause status
CPT/HCPCS: 99291; 74176; 96374; 96375; 80076; 80048; 81001; 83690; 85025; 36415; 93005 ×2; 71045; 73590; 96376; J2405; J2270 ×2; A4606; A4663

== ENCOUNTER 2024-11-20 14:32 | Inpatient (IN) | payer MEDICARE, OTHER ==
[2024-11-20] VITALS (10 sets, daily range): BP systolic 120–146; BP diastolic 44–86; TEMP 97.3–98.6; O2SAT 93–100
[~2024-11-20] VITALS: Ht 170.2 cm; Wt 137.0 kg
[2024-11-20 14:54] LABS: PLATELET COUNT (AUTO) 211 K/uL (152-348); RED BLOOD CELL COUNT(AUTO) 4.56 MIL/uL (4.06-5.63); RED CELL DISTRIBUTION WIDTH 14.3 % (12.1-16.2); WHITE BLOOD COUNT (AUTO) 22.9 K/uL (3.6-10.2)
[2024-11-20 15:01] LABS: CREATININE 1.5 mg/dL (0.6-1.3); SODIUM SERUM 140 mmol/L (136-145); UREA NITROGEN, BLOOD 25 mg/dL (7-18)
[2024-11-20 15:06] LABS: ASPARTATE AMINOTRANSFERASE 19 U/L (15-37); TOTAL PROTEIN, SERUM 7.9 g/dL (6.4-8.2)
[2024-11-20] MEDS ORDERED: CEFTRIAXONE /D5W 50ML IVPB **ER PYXIS IV ONE (15:33)
[2024-11-20] MEDS ORDERED: DEXAMETHASONE SOD PHOSPHATE 4 MG INJ ONE (15:33)
[2024-11-20] MEDS: LIDOCAINE 1%-EPI 1:100,000 20 ML VIAL IJ ONE (15:40)
[2024-11-20] MEDS: DEXAMETHASONE SOD PHOSPHATE 4 MG INJ IV ONE (15:42)
[2024-11-20] MEDS: CEFTRIAXONE 1 G in IV DEXTROSE 5% 50 ML IV ONE (15:42)
[2024-11-20 15:51] LABS: ABG BASE EXCESS -4.9 mmol/L (-2.0-3.0); ABG HCO3 20.1 mmol/L (21.0-28.0); ABG PCO2 37.5 mmHg (35.0-48.0); ABG PH 7.348 (7.350-7.450); ABG PO2 172.6 mmHg (83.0-108.0); ABG TOTAL HEMOGLOBIN 13.2 G/dL (13.5-17.5); AaDO2 99.1 mmHg; FIO2 50.0 %; SET RATE, BG 20.0; VT, ABG 856 mL
[2024-11-20] MEDS ORDERED: CYAN100T44 GT (15:55)
[2024-11-20] MEDS ORDERED: MULT-594 PO (15:55)
[2024-11-20] MEDS ORDERED: BUME1TAB8 PO (15:55)
[2024-11-20] MEDS ORDERED: RANO10003 PO (15:55)
[2024-11-20] MEDS ORDERED: CHOL10005 PO (15:55)
[2024-11-20] MEDS ORDERED: GABA-532 PO (15:55)
[2024-11-20] MEDS ORDERED: TAMS-3 PO (15:55)
[2024-11-20] MEDS ORDERED: TRELEGY ELLIPTA IH (17:48)
[2024-11-20] MEDS ORDERED: INSU100V7 SQ (17:50)
[2024-11-20] MEDS ORDERED: HYDR-3980 PO (17:51)
[2024-11-20] MEDS ORDERED: INSU100I40 SQ (17:52)
[2024-11-20] MEDS ORDERED: ALBU6.7H9 IH (17:54)
[2024-11-20] MEDS ORDERED: CYAN100T44 PO (17:55)
[2024-11-20] MEDS ORDERED: ONDANSETRON 4 MG/2 ML VIAL IV PRN (18:00)
[2024-11-20] MEDS ORDERED: REMEDY ESSENTIAL ZINC PASTE 113 GM TP PRN (18:00)
[2024-11-20] MEDS ORDERED: DEXTROSE 50% 50 ML DISP.SYRIN IV PRN (18:15)
[2024-11-20] MEDS: BLOOD SUGAR DIAGNOSTIC 1 EACH STRIP VI SCH (18:48)
[2024-11-20] MEDS: INSULIN REGULAR, HUMAN 1000 UNIT/10 ML VIAL SQ PRN (19:08)
[2024-11-20] MEDS: INSULIN GLARGINE,HUM 300 UNITS/3 ML CARTRIDGE SQ SCH (19:09)
[2024-11-20] MEDS: FUROSEMIDE 20 MG/2 ML VIAL IV ONE (19:13)
[2024-11-20 20:27] LABS: *BILIRUBIN,URIN NEGATIVE (NEGATIVE); *BLOOD, URINE NEGATIVE (NEGATIVE); *CLARITY,URINE CLEAR (CLEAR); *COLOR,URINE YELLOW (YELLOW); *KETONES,URINE NEGATIVE (NEGATIVE); *PROTEIN,URINE NEGATIVE (NEGATIVE); *UROBILINOGEN,URINE 0.2 E.U./dl (NORMAL); LEUKOCYTE ESTERASE ,URINE NEGATIVE (NEGATIVE); NITRITE, URINE NEGATIVE (NEGATIVE); UGLUCOSE 3+ (NEGATIVE)
[2024-11-20 20:34] LABS: SQUAMOUS EPITHELIAL CELL,UR FEW /HPF (NONE SEEN)
[2024-11-20] MEDS: CHOLECALCIFEROL 1,000 UNIT TABLET PO SCH (20:47)
[2024-11-20] MEDS: TAMSULOSIN HCL 0.4 MG CAP.SR.24H PO SCH (20:47)
[2024-11-20] MEDS: ATORVASTATIN 20 MG TABLET PO SCH (20:47)
[2024-11-20] MEDS: DONEPEZIL 10 MG TABLET PO SCH (20:47)
[2024-11-20] MEDS: CEFEPIME HCL 2 GM in IV DEXTROSE 5% 100 ML IV SCH (21:11)
[2024-11-20] MEDS ORDERED: DOXYCYCLINE HYCLATE 100 MG TABLET ONE (21:16)
[2024-11-20] MEDS: DOXYCYCLINE HYCLATE 100 MG TABLET PO SCH (21:23)
[2024-11-20] MEDS: IPRATROPIUM BROMIDE 0.5 MG/2.5 ML NEBU NEB SCH (21:30)
[2024-11-20] MEDS: ALBUTEROL SULFATE 2.5 MG/3 ML NEBU NEB SCH (21:30)
[2024-11-20] MEDS: MELATONIN 3 MG TABLET PO PRN (21:45)
[2024-11-20] MEDS: ACETAMINOPHEN 325 MG TABLET PO PRN (22:19)
[2024-11-21] VITALS (27 sets, daily range): BP systolic 107–146; BP diastolic 28–91; TEMP 97.8–98.9; O2SAT 93–99
[2024-11-21 04:36] LABS: PLATELET COUNT (AUTO) 168 K/uL (152-348); RED BLOOD CELL COUNT(AUTO) 3.80 MIL/uL (4.06-5.63); RED CELL DISTRIBUTION WIDTH 13.9 % (12.1-16.2); WHITE BLOOD COUNT (AUTO) 13.6 K/uL (3.6-10.2)
[2024-11-21 04:53] LABS: CREATININE 1.5 mg/dL (0.6-1.3); SODIUM SERUM 135 mmol/L (136-145); UREA NITROGEN, BLOOD 28 mg/dL (7-18)
[2024-11-21] MEDS: PANTOPRAZOLE SODIUM 40 MG TABLET.DR PO SCH (06:09)
[2024-11-21] MEDS: ASPIRIN 81 MG TAB.CHEW PO SCH (08:08)
[2024-11-21] MEDS: CLOPIDOGREL 75 MG TABLET PO SCH (08:08)
[2024-11-21] MEDS: GABAPENTIN 100 MG CAPSULE PO SCH (08:09)
[2024-11-21] MEDS: CYANOCOBALAMIN 1,000 MCG TABLET PO SCH (08:31)
[2024-11-21] MEDS: RANOLAZINE 500 MG TAB.ER.12H PO SCH (08:31)
[2024-11-21] MEDS: DULOXETINE 30 MG CAPSULE.DR PO SCH (08:32)
[2024-11-21] MEDS ORDERED: CYANOCOBALAMIN 100 MCG TABLET PO SCH (09:00)
[2024-11-21] MEDS: BUMETANIDE 1 MG TABLET PO SCH (12:08)
[2024-11-21] MEDS: CEFEPIME HCL 2 GM in IV DEXTROSE 5% 100 ML IV SCH (18:00)
[2024-11-21] MEDS: LORAZEPAM 0.5 MG TABLET PO PRN (20:10)
[2024-11-22] VITALS (14 sets, daily range): BP systolic 129–158; BP diastolic 60–82; TEMP 97.2–98; O2SAT 92–99
[2024-11-22 07:13] LABS: PLATELET COUNT (AUTO) 180 K/uL (152-348); RED BLOOD CELL COUNT(AUTO) 4.15 MIL/uL (4.06-5.63); RED CELL DISTRIBUTION WIDTH 14.1 % (12.1-16.2); WHITE BLOOD COUNT (AUTO) 23.8 K/uL (3.6-10.2)
[2024-11-22 07:37] LABS: ASPARTATE AMINOTRANSFERASE 16 U/L (15-37); CREATINE KINASE, TOTAL 63 U/L (39-308); CREATININE 1.4 mg/dL (0.6-1.3); SODIUM SERUM 139 mmol/L (136-145); TOTAL PROTEIN, SERUM 7.2 g/dL (6.4-8.2); UREA NITROGEN, BLOOD 30 mg/dL (7-18)
[2024-11-22] MEDS ORDERED: METH4TAB3 PO (13:50)
[2024-11-23] VITALS (11 sets, daily range): BP systolic 118–152; BP diastolic 49–85; TEMP 97.9–98.8; O2SAT 93–100
[2024-11-23] MEDS ORDERED: PRED20TA PO (09:02)
[2024-11-23 09:07] LABS: PTH, INTACT 47 pg/mL (15-65)
[2024-11-23] MEDS: IBUPROFEN 400 MG TABLET PO ONE (12:46)
[2024-11-25 13:07] LABS: A/G RATIO 0.7 (0.7-1.7); BETA GLOBULIN 1.1 g/dL (0.7-1.3); GLOBULIN, TOTAL 4.4 g/dL (2.2-3.9); M-SPIKE 0.7 g/dL (Not Observed); PROTEIN, TOTAL 7.5 g/dL (6.0-8.5)
== END 2024-11-23 16:30 | DRG 871 ==
LOC: ER 14:32 → UNDOADMIN 16:29 → OBSER 16:29 → UNDOADMIN 17:39 → ICU IN 19:21 → CCU 19:31 → TELE3 11-21 10:57 → MEDSURG3 11-23 08:22
PROVIDERS: ADMIT Nurse Practitioner Family; ATTEND Nurse Practitioner Family
PROC: 05HD33Z Insertion of Infusion Device into Right Cephalic Vein, Percutaneous Approach (ICD-10-PCS; principal; 2024-11-21)
DX: A41.9 Sepsis, unspecified organism (principal); J96.21 Acute and chronic respiratory failure with hypoxia; J44.0 Chronic obstructive pulmonary disease with (acute) lower respiratory infection; J44.1 Chronic obstructive pulmonary disease with (acute) exacerbation; Z68.42 Body mass index [BMI] 45.0-49.9, adult; I13.0 Hypertensive heart and chronic kidney disease with heart failure and stage 1 through stage 4 chronic kidney disease, or unspecified chronic kidney disease; I50.32 Chronic diastolic (congestive) heart failure; E87.1 Hypo-osmolality and hyponatremia; N18.32 Chronic kidney disease, stage 3b; R65.20 Severe sepsis without septic shock; J20.8 Acute bronchitis due to other specified organisms; G47.33 Obstructive sleep apnea (adult) (pediatric); E11.22 Type 2 diabetes mellitus with diabetic chronic kidney disease; E11.65 Type 2 diabetes mellitus with hyperglycemia; E66.01 Morbid (severe) obesity due to excess calories; I25.10 Atherosclerotic heart disease of native coronary artery without angina pectoris; Z71.3 Dietary counseling and surveillance; Z87.891 Personal history of nicotine dependence; Z95.5 Presence of coronary angioplasty implant and graft; Z98.84 Bariatric surgery status; Z79.4 Long term (current) use of insulin; Z99.81 Dependence on supplemental oxygen; Z79.899 Other long term (current) drug therapy; Z79.02 Long term (current) use of antithrombotics/antiplatelets; E78.5 Hyperlipidemia, unspecified; D64.9 Anemia, unspecified; F32.A Depression, unspecified
CPT/HCPCS: 36415; 36600; 71045; 72170; 73502; 82803; 83605; 83735; 83970; 84100; 84155; 84165; 84484; 85025; 85730; 87040; 94640; 94664; 94760; 99082-TC; A4606; A4663; G0378; J0692; J0696; J1100; J1815; J1938; J3590; J7512